=== PATIENT | male | born 1955 | race African-American/Black ===

== ENCOUNTER 2018-07-14 12:53 | Emergency (ER) | payer MEDICAID ==
[~2018-07-14] VITALS: Ht 177.8 cm; Wt 90.0 kg
[2018-07-14] MEDS ORDERED: SODIUM CHLORIDE 0.9% 1,000 ML IV ONE (13:20)
[2018-07-14 14:09] LABS: BASOPHILS % 0.1 % (0.0-2.0); EOSINOPHILS % 0.9 % (0.0-5.0); HEMATOCRIT. 39.2 % (42.0-52.0); HEMOGLOBIN. 13.2 g/dL (14.0-18.0); LYMPHOCYTES % 16.5 % (20.0-50.0); MEAN CORPUSCULAR HEMOGLOBIN 35.7 pg (28.0-32.0); MEAN CORPUSCULAR VOLUME 106.2 fL (80.0-94.0); MEAN PLATELET VOLUME 8.8 fl (7.4-10.4); MONOCYTES % 6.8 % (2.0-8.0); NEUTROPHILS % 75.7 % (40.0-76.0); PLATELET 186 x1000/uL (130-400); RED BLOOD CELL COUNT 3.69 mill/uL (4.7-6.1); RED CELL DISTRIBUTION WIDTH 13.9 % (11.6-14.6)
[2018-07-14 14:15] LABS: CHLORIDE 103 mEq/L (98-107)
[2018-07-14 14:19] LABS: ETHANOL BLOOD 235 mg/dL
[2018-07-14 16:37] LABS: CLARITY URINE CLEAR (CLEAR); COLOR URINE YELLOW (YELLOW); KETONES URINE NEGATIVE (NEGATIVE); LEUKOCYTE ESTERASE URINE NEGATIVE (NEGATIVE); NITRITE URINE NEGATIVE (NEGATIVE); OCCULT BLOOD URINE NEGATIVE (NEGATIVE); PH URINE 5.5 (4.5-8.0); PROTEIN URINE NEGATIVE (NEGATIVE); SPECIFIC GRAVITY URINE 1.005 (1.005-1.030)
[2018-07-14 16:49] LABS: *AMPHETAMINES SCREEN URINE NEGATIVE (NEGATIVE); *BARBITURATES SCREEN URINE NEGATIVE (NEGATIVE); *BENZODIAZEPINES SCREEN URINE NEGATIVE (NEGATIVE); *COCAINE SCREEN URINE NEGATIVE (NEGATIVE)
[2018-07-14 16:50] LABS: CANNABINOID URINE SCREEN NEGATIVE (NEGATIVE); METHADONE URINE SCREEN NEGATIVE (NEGATIVE); OPIATES URINE SCREEN NEGATIVE (NEGATIVE); PHENCYCLIDINE URINE SCREEN PRESUMTIVE POSITIVE (NEGATIVE)
[2018-07-14] MEDS ORDERED: ACETAMINOPHEN 325MG TABLET PO ONE (17:45)
[2018-07-14 19:24] VITALS: BP 125/71
[2018-07-24] MEDS ORDERED: CLON-457 PO (19:47)
[2018-07-24] MEDS ORDERED: RIVA1TAB PO (19:48)
== END 2018-07-14 19:27 | disposition home or self-care (01) ==
LOC: EDBD 12:53 → ER 12:53
DX: F10.129 Alcohol abuse with intoxication, unspecified (principal); Y90.7 Blood alcohol level of 200-239 mg/100 ml; G92 Toxic encephalopathy; S62.031A Displaced fracture of proximal third of navicular [scaphoid] bone of right wrist, initial encounter for closed fracture; F16.10 Hallucinogen abuse, uncomplicated; X58.XXXA Exposure to other specified factors, initial encounter; Y93.89 Activity, other specified; Y92.481 Parking lot as the place of occurrence of the external cause; R03.0 Elevated blood-pressure reading, without diagnosis of hypertension
CPT/HCPCS: 29125; 36415; 70450; 70486; 72125; 73110; 73130; 80053; 80305; 80307; 80329; 81003; 85025; 93005; 99285; G0482; J7030

== ENCOUNTER 2018-07-19 18:53 | Emergency (ER) | payer MEDICAID ==
[~2018-07-19] VITALS: Ht 182.9 cm; Wt 87.0 kg
[2018-07-19] MEDS ORDERED: SODIUM CHLORIDE 0.9% 1,000 ML IV ONE (20:19)
[2018-07-19] MEDS ORDERED: KETOROLAC 30MG/ML VIAL IV ONE (20:30)
[2018-07-19 21:34] LABS: *AMPHETAMINES SCREEN URINE NEGATIVE (NEGATIVE); *BARBITURATES SCREEN URINE NEGATIVE (NEGATIVE); *BENZODIAZEPINES SCREEN URINE NEGATIVE (NEGATIVE); *COCAINE SCREEN URINE NEGATIVE (NEGATIVE); CANNABINOID URINE SCREEN NEGATIVE (NEGATIVE); METHADONE URINE SCREEN NEGATIVE (NEGATIVE); OPIATES URINE SCREEN NEGATIVE (NEGATIVE); PHENCYCLIDINE URINE SCREEN PRESUMTIVE POSITIVE (NEGATIVE)
[2018-07-19 21:54] LABS: BASOPHILS % 0.7 % (0.0-2.0); EOSINOPHILS % 2.3 % (0.0-5.0); HEMATOCRIT. 39.2 % (42.0-52.0); HEMOGLOBIN. 13.3 g/dL (14.0-18.0); LYMPHOCYTES % 25.5 % (20.0-50.0); MEAN CORPUSCULAR HEMOGLOBIN 36.8 pg (28.0-32.0); MEAN CORPUSCULAR VOLUME 108.2 fL (80.0-94.0); MONOCYTES % 8.4 % (2.0-8.0); NEUTROPHILS % 63.1 % (40.0-76.0); PLATELET 180 x1000/uL (130-400); RED BLOOD CELL COUNT 3.62 mill/uL (4.7-6.1); RED CELL DISTRIBUTION WIDTH 13.9 % (11.6-14.6)
[2018-07-19 21:55] LABS: CHLORIDE 103 mEq/L (98-107); ETHANOL BLOOD 14 mg/dL
[2018-07-19 22:58] VITALS: BP 155/77
[2018-07-24] MEDS ORDERED: CLON-457 PO (19:47)
[2018-07-24] MEDS ORDERED: RIVA1TAB PO (19:48)
== END 2018-07-19 22:59 | disposition home or self-care (01) ==
LOC: ER 18:53
DX: I11.0 Hypertensive heart disease with heart failure (principal); I50.9 Heart failure, unspecified; F17.200 Nicotine dependence, unspecified, uncomplicated; F16.10 Hallucinogen abuse, uncomplicated
CPT/HCPCS: 36415; 71045; 80048; 80305; 83880; 84484; 85025; 93005; 96374; 99285; G0482; J1885; J7030; Z7610

== ENCOUNTER 2018-09-04 16:48 | Emergency (ER) | payer MEDICAID ==
[~2018-09-04] VITALS: Ht 177.8 cm; Wt 90.0 kg
[~2018-09-04 16:48] MED LIST: CLON-457 PO; RIVA1TAB PO
[2018-09-04] MEDS ORDERED: IBUPROFEN 600MG TABLET PO STA (18:57)
[2018-09-04 21:02] LABS: BASOPHILS % 0.4 % (0.0-2.0); EOSINOPHILS % 1.7 % (0.0-5.0); HEMATOCRIT. 42.3 % (42.0-52.0); HEMOGLOBIN. 14.2 g/dL (14.0-18.0); LYMPHOCYTES % 33.7 % (20.0-50.0); MEAN CORPUSCULAR HEMOGLOBIN 35.5 pg (28.0-32.0); MEAN CORPUSCULAR VOLUME 105.4 fL (80.0-94.0); MONOCYTES % 7.7 % (2.0-8.0); NEUTROPHILS % 56.5 % (40.0-76.0); PLATELET 151 x1000/uL (130-400); RED BLOOD CELL COUNT 4.01 mill/uL (4.7-6.1); RED CELL DISTRIBUTION WIDTH 13.6 % (11.6-14.6)
[2018-09-04 21:11] LABS: CHLORIDE 106 mEq/L (98-107)
[2018-09-04 21:18] LABS: ETHANOL BLOOD 72 mg/dL
[2018-09-04 21:35] LABS: *AMPHETAMINES SCREEN URINE NEGATIVE (NEGATIVE); *BENZODIAZEPINES SCREEN URINE NEGATIVE (NEGATIVE); *COCAINE SCREEN URINE NEGATIVE (NEGATIVE); CANNABINOID URINE SCREEN NEGATIVE (NEGATIVE); METHADONE URINE SCREEN NEGATIVE (NEGATIVE); OPIATES URINE SCREEN NEGATIVE (NEGATIVE); PHENCYCLIDINE URINE SCREEN PRESUMTIVE POSITIVE (NEGATIVE)
[2018-09-04 21:45] LABS: *BARBITURATES SCREEN URINE NEGATIVE (NEGATIVE)
[2018-09-04 22:24] VITALS: BP 139/80
== END 2018-09-04 22:25 | disposition home or self-care (01) ==
LOC: ER 16:48
DX: R07.89 Other chest pain (principal); E78.00 Pure hypercholesterolemia, unspecified; I10 Essential (primary) hypertension; F17.200 Nicotine dependence, unspecified, uncomplicated; F10.129 Alcohol abuse with intoxication, unspecified; Y90.3 Blood alcohol level of 60-79 mg/100 ml; Z98.890 Other specified postprocedural states
CPT/HCPCS: 36415; 71045; 80053; 80305; 83880; 84484; 85025; 93005; 99284; 99406; G0482

== ENCOUNTER 2018-09-16 17:59 | Inpatient (IN) | payer MEDICAID ==
[~2018-09-16] VITALS: Ht 175.3 cm; Wt 84.4 kg
[2018-09-16] MEDS ORDERED: FAMOTIDINE 20MG/2ML VIAL IV STA (19:14)
[2018-09-16] MEDS ORDERED: MAGNESIUM/ALUMINUM HYDROXIDE/SIMETHICONE 30ML UDC PO STA (19:14)
[2018-09-16] MEDS ORDERED: VISCOUS LIDOCAINE 2% 15 ML UDC PO STA (19:14)
[2018-09-16] MEDS ORDERED: NITROGLYCERIN OINT 1GM/INCH UDPKT TD ONE (19:15)
[2018-09-16 21:05] LABS: BASOPHILS % 0.5 % (0.0-2.0); EOSINOPHILS % 1.4 % (0.0-5.0); HEMATOCRIT. 39.4 % (42.0-52.0); HEMOGLOBIN. 13.2 g/dL (14.0-18.0); LYMPHOCYTES % 20.8 % (20.0-50.0); MEAN CORPUSCULAR HEMOGLOBIN 35.1 pg (28.0-32.0); MEAN CORPUSCULAR VOLUME 105.1 fL (80.0-94.0); MONOCYTES % 8.6 % (2.0-8.0); NEUTROPHILS % 68.7 % (40.0-76.0); PLATELET 168 x1000/uL (130-400); RED BLOOD CELL COUNT 3.75 mill/uL (4.7-6.1); RED CELL DISTRIBUTION WIDTH 14.3 % (11.6-14.6)
[2018-09-16 21:12] LABS: INR 1.1; PROTHROMBIN TIME 10.6 sec (9.1-11.1)
[2018-09-16 21:14] LABS: CHLORIDE 108 mEq/L (98-107)
[2018-09-16 21:19] LABS: ETHANOL BLOOD < 10 mg/dL
[2018-09-16 22:42] LABS: CLARITY URINE CLOUDY (CLEAR); COLOR URINE DARK YELLOW (YELLOW); KETONES URINE 1+ (NEGATIVE); LEUKOCYTE ESTERASE URINE NEGATIVE (NEGATIVE); NITRITE URINE NEGATIVE (NEGATIVE); OCCULT BLOOD URINE NEGATIVE (NEGATIVE); PROTEIN URINE 1+ (NEGATIVE); SPECIFIC GRAVITY URINE 1.029 (1.005-1.030)
[2018-09-16 22:51] LABS: *AMPHETAMINES SCREEN URINE NEGATIVE (NEGATIVE); *BARBITURATES SCREEN URINE NEGATIVE (NEGATIVE); *BENZODIAZEPINES SCREEN URINE NEGATIVE (NEGATIVE)
[2018-09-16 22:52] LABS: *COCAINE SCREEN URINE NEGATIVE (NEGATIVE); CANNABINOID URINE SCREEN NEGATIVE (NEGATIVE); METHADONE URINE SCREEN NEGATIVE (NEGATIVE); OPIATES URINE SCREEN NEGATIVE (NEGATIVE); PHENCYCLIDINE URINE SCREEN PRESUMTIVE POSITIVE (NEGATIVE)
[2018-09-17 09:30] VITALS: BP 127/65
[2018-09-17] MEDS ORDERED: ACETAMINOPHEN 325MG TABLET PO PRN (11:00)
[2018-09-17] MEDS ORDERED: ONDANSETRON HCL 4MG/2ML INJ IV PRN (11:00)
[2018-09-17 12:00] VITALS: BP 124/75
[2018-09-17 13:18] LABS: HEMATOCRIT 37.6 % (42.0-52.0); HEMOGLOBIN 12.6 g/dL (14.0-18.0)
[2018-09-17] MEDS ORDERED: FOLIC ACID 1 MG, THIAMINE HCL 100 MG, MVI, ADULT NO.1 10 ML in DEXTROSE 5% WATER 1,000 ML IV NR ×4 (14:00)
[2018-09-17] MEDS: CHLORDIAZEPOXIDE 25MG CAPSULE PO SCH ×2 (14:03→21:09)
[2018-09-17 14:08] LABS: CREATINE KINASE 117 IU/L (39-308)
[2018-09-17 14:09] LABS: CREATINE KINASE MB FRACTION 1.2 ng/mL (0.5-3.6)
[2018-09-17 16:00] VITALS: BP 108/68
[2018-09-17] MEDS: PANTOPRAZOLE SODIUM 40 MG/VIAL IV SCH (17:38)
[2018-09-17 20:15] VITALS: BP 122/62
[2018-09-18] VITALS: BP 124/64
[2018-09-18] MEDS: BUDESONIDE 0.5MG/2ML NEB HHN SCH (01:15)
[2018-09-18 04:00] VITALS: BP 125/70
[2018-09-18] MEDS: CHLORDIAZEPOXIDE 25MG CAPSULE PO SCH ×3 (05:35→21:57)
[2018-09-18 08:00] VITALS: BP 124/69
[2018-09-18 08:09] LABS: BASOPHILS % 0.7 % (0.0-2.0); EOSINOPHILS % 1.9 % (0.0-5.0); HEMATOCRIT. 37.5 % (42.0-52.0); HEMOGLOBIN. 12.7 g/dL (14.0-18.0); LYMPHOCYTES % 24.3 % (20.0-50.0); MEAN CORPUSCULAR HEMOGLOBIN 35.3 pg (28.0-32.0); MEAN CORPUSCULAR VOLUME 104.5 fL (80.0-94.0); MEAN PLATELET VOLUME 8.9 fl (7.4-10.4); MONOCYTES % 9.9 % (2.0-8.0); NEUTROPHILS % 63.2 % (40.0-76.0); PLATELET 150 x1000/uL (130-400); RED BLOOD CELL COUNT 3.58 mill/uL (4.7-6.1); RED CELL DISTRIBUTION WIDTH 13.9 % (11.6-14.6)
[2018-09-18] MEDS: PANTOPRAZOLE SODIUM 40 MG/VIAL IV SCH ×2 (08:22→17:20)
[2018-09-18 08:36] LABS: CHLORIDE 107 mEq/L (98-107)
[2018-09-18] MEDS ORDERED: CLOPIDOGREL 75MG TABLET PO SCH (09:00)
[2018-09-18] MEDS ORDERED: ASPIRIN 81MG TABLET PO SCH (09:00)
[2018-09-18 12:00] VITALS: BP 107/60
[2018-09-18 12:39] LABS: T4 FREE 1.11 ng/dL (0.76-1.46)
[2018-09-18] MEDS ORDERED: ENOXAPARIN 80MG/0.8ML SYR SUBCUT SCH (13:00)
[2018-09-18] MEDS ORDERED: IPRATROPIUM/ALBUTEROL 0.5-3(2.5)MG/3ML NEB HHN PRN (16:15)
[2018-09-18 16:31] VITALS: BP 133/83
[2018-09-18 16:33] LABS: CREATINE KINASE 64 IU/L (39-308)
[2018-09-18 16:34] LABS: CREATINE KINASE MB FRACTION < 1.0 ng/mL (0.5-3.6)
[2018-09-18 20:00] VITALS: BP 120/75
[2018-09-18] MEDS: IPRATROPIUM/ALBUTEROL 0.5-3(2.5)MG/3ML NEB HHN SCH (20:48)
[2018-09-19] VITALS: BP 128/76
[2018-09-19] MEDS: IPRATROPIUM/ALBUTEROL 0.5-3(2.5)MG/3ML NEB HHN SCH ×4 (01:10→20:00)
[2018-09-19 04:00] VITALS: BP 100/66
[2018-09-19] MEDS: CHLORDIAZEPOXIDE 25MG CAPSULE PO SCH ×3 (05:40→21:15)
[2018-09-19 08:00] VITALS: BP 110/76
[2018-09-19] MEDS: BUDESONIDE 0.5MG/2ML NEB HHN SCH ×2 (08:40→20:00)
[2018-09-19] MEDS: PANTOPRAZOLE SODIUM 40 MG/VIAL IV SCH ×2 (08:43→16:51)
[2018-09-19 10:57] LABS: BASOPHILS % 0.7 % (0.0-2.0); EOSINOPHILS % 2.2 % (0.0-5.0); HEMATOCRIT. 38.5 % (42.0-52.0); HEMOGLOBIN. 12.8 g/dL (14.0-18.0); LYMPHOCYTES % 24.1 % (20.0-50.0); MEAN CORPUSCULAR HEMOGLOBIN 34.7 pg (28.0-32.0); MEAN CORPUSCULAR VOLUME 104.2 fL (80.0-94.0); MEAN PLATELET VOLUME 9.4 fl (7.4-10.4); MONOCYTES % 10.2 % (2.0-8.0); NEUTROPHILS % 62.8 % (40.0-76.0); PLATELET 171 x1000/uL (130-400); RED CELL DISTRIBUTION WIDTH 13.9 % (11.6-14.6)
[2018-09-19 11:16] LABS: CHLORIDE 107 mEq/L (98-107)
[2018-09-19 11:25] LABS: CREATINE KINASE 50 IU/L (39-308)
[2018-09-19 11:27] LABS: CREATINE KINASE MB FRACTION < 1.0 ng/mL (0.5-3.6)
[2018-09-19 12:29] VITALS: BP 114/86
[2018-09-19] MEDS ORDERED: ENOXAPARIN 80MG/0.8ML SYR SUBCUT SCH (15:30)
[2018-09-19 16:12] VITALS: BP 155/91
[2018-09-19] MEDS: ENOXAPARIN 80MG/0.8ML SYR SUBCUT SCH (16:51)
[2018-09-19] MEDS ORDERED: WARFARIN SODIUM 7.5MG TABLET PO NR (18:00)
[2018-09-19 20:00] VITALS: BP 129/84
[2018-09-20] VITALS: BP 135/85
[2018-09-20 04:00] VITALS: BP 141/84
[2018-09-20] MEDS: CHLORDIAZEPOXIDE 25MG CAPSULE PO SCH ×3 (05:18→21:28)
[2018-09-20] MEDS: ENOXAPARIN 80MG/0.8ML SYR SUBCUT SCH ×2 (05:19→17:54)
[2018-09-20 08:00] VITALS: BP 128/75
[2018-09-20] MEDS: PANTOPRAZOLE SODIUM 40 MG/VIAL IV SCH ×2 (08:33→17:54)
[2018-09-20] MEDS: IPRATROPIUM/ALBUTEROL 0.5-3(2.5)MG/3ML NEB HHN SCH ×3 (09:10→17:35)
[2018-09-20] MEDS: BUDESONIDE 0.5MG/2ML NEB HHN SCH ×2 (09:10→09:57)
[2018-09-20 12:00] VITALS: BP 137/84
[2018-09-20] MEDS ORDERED: WARFARIN SODIUM 10MG TABLET PO SCH (18:00)
[2018-09-20 20:00] VITALS: BP 157/88
[2018-09-21] VITALS: BP 159/87
[2018-09-21 04:00] VITALS: BP 150/87
[2018-09-21] MEDS: ENOXAPARIN 80MG/0.8ML SYR SUBCUT SCH (05:16)
[2018-09-21] MEDS: CHLORDIAZEPOXIDE 25MG CAPSULE PO SCH (05:16)
[2018-09-21 08:00] VITALS: BP 157/88
[2018-09-21] MEDS: PANTOPRAZOLE SODIUM 40 MG/VIAL IV SCH (09:00)
== END 2018-09-21 12:55 | disposition left against medical advice (07) | DRG 134 ==
LOC: ER 18:33 → 8WST 21:35 → EDBEDREQTM 21:37 → EDBEDREQ 21:37 → ENRESERV 09-17 08:52
PROVIDERS: ADMIT Internal Medicine; ATTEND Internal Medicine
DX: I26.99 Other pulmonary embolism without acute cor pulmonale (principal); J96.00 Acute respiratory failure, unspecified whether with hypoxia or hypercapnia; J18.9 Pneumonia, unspecified organism; N17.9 Acute kidney failure, unspecified; K92.0 Hematemesis; E87.8 Other disorders of electrolyte and fluid balance, not elsewhere classified; D62 Acute posthemorrhagic anemia; K92.2 Gastrointestinal hemorrhage, unspecified; J44.0 Chronic obstructive pulmonary disease with (acute) lower respiratory infection; M94.0 Chondrocostal junction syndrome [Tietze]; I82.401 Acute embolism and thrombosis of unspecified deep veins of right lower extremity; R07.89 Other chest pain; Z53.21 Procedure and treatment not carried out due to patient leaving prior to being seen by health care provider; S00.83XA Contusion of other part of head, initial encounter; I25.10 Atherosclerotic heart disease of native coronary artery without angina pectoris; I10 Essential (primary) hypertension; F17.200 Nicotine dependence, unspecified, uncomplicated; F16.90 Hallucinogen use, unspecified, uncomplicated; F10.10 Alcohol abuse, uncomplicated; E78.5 Hyperlipidemia, unspecified; Z91.81 History of falling; Z91.19 Patient's noncompliance with other medical treatment and regimen; Z79.01 Long term (current) use of anticoagulants; Z86.718 Personal history of other venous thrombosis and embolism; Z91.14 Patient's other noncompliance with medication regimen
CPT/HCPCS: 36415; 71045; 78582; 80048; 80061; 80305; 82550; 82553; 83036; 83880; 84439; 84443; 84484; 85014; 85018; 85379; 93005; 93306; 93970; 96374; 99285; A9558; C1893; C9113; G0482; J1650; J3411; J3490; J7070; J7620; J7626

== ENCOUNTER 2018-09-24 16:10 | Inpatient (IN) | payer MEDICAID ==
[~2018-09-24] VITALS: Ht 185.4 cm; Wt 83.0 kg
[2018-09-24] MEDS ORDERED: NITROGLYCERIN 0.4MG TABLET SL SL PRN (17:00)
[2018-09-24] MEDS ORDERED: ASPIRIN 81MG TABLET PO ONE (17:00)
[2018-09-24 17:43] LABS: BASOPHILS % 0.4 % (0.0-2.0); CHLORIDE 104 mEq/L (98-107); EOSINOPHILS % 1.9 % (0.0-5.0); HEMATOCRIT. 40.5 % (42.0-52.0); HEMOGLOBIN. 13.3 g/dL (14.0-18.0); MEAN CORPUSCULAR HEMOGLOBIN 34.4 pg (28.0-32.0); MEAN CORPUSCULAR VOLUME 104.6 fL (80.0-94.0); MEAN PLATELET VOLUME 9.3 fl (7.4-10.4); MONOCYTES % 11.4 % (2.0-8.0); NEUTROPHILS % 60.3 % (40.0-76.0); PLATELET 219 x1000/uL (130-400); RED BLOOD CELL COUNT 3.87 mill/uL (4.7-6.1); RED CELL DISTRIBUTION WIDTH 13.8 % (11.6-14.6)
[2018-09-24 17:47] LABS: ETHANOL BLOOD < 10 mg/dL
[2018-09-24 17:54] LABS: D-DIMER 0.91 mg/L FEU (<0.50); INR 1.1; PARTIAL THROMBOPLASTIN TIME 35.2 sec (23.4-31.0); PROTHROMBIN TIME 11.4 sec (9.1-11.1)
[2018-09-24] MEDS ORDERED: HEPARIN 25,000 UNITS PREMIX 500 ML IV SCH ×2 (21:15→21:45)
[2018-09-24] MEDS ORDERED: HEPARIN 5000 UNITS/ML VIAL IV ONE (21:15)
[2018-09-24] MEDS ORDERED: ONDANSETRON HCL 4MG/2ML INJ IV PRN (21:30)
[2018-09-24] MEDS ORDERED: MAGNESIUM/ALUMINUM HYDROXIDE/SIMETHICONE 30ML UDC PO PRN (21:30)
[2018-09-24] MEDS ORDERED: ACETAMINOPHEN 325MG TABLET PO PRN (21:30)
[2018-09-24] MEDS ORDERED: IPRATROPIUM/ALBUTEROL 0.5-3(2.5)MG/3ML NEB INH PRN (21:30)
[2018-09-24] MEDS ORDERED: CLONIDINE 0.1MG TABLET PO PRN (21:30)
[2018-09-24] MEDS ORDERED: DOCUSATE SODIUM 100MG CAPSULE PO PRN (21:30)
[2018-09-24] MEDS ORDERED: HYDROCODONE/ACETAMINOPHEN 5/325MG TABLET PO PRN (21:30)
[2018-09-24] MEDS: SODIUM CHLORIDE 0.9% 1,000 ML IV SCH (22:44)
[2018-09-25 00:16] LABS: CHLORIDE 106 mEq/L (98-107)
[2018-09-25] MEDS ORDERED: DEXTROSE 50% WATER 50ML SYRINGE IV ONE (00:24)
[2018-09-25 00:26] LABS: CREATINE KINASE 80 IU/L (39-308)
[2018-09-25 00:28] LABS: CREATINE KINASE MB FRACTION 1.9 ng/mL (0.5-3.6)
[2018-09-25] MEDS ORDERED: DEXTROSE 50% WATER 50ML SYRINGE IV PRN (02:45)
[2018-09-25 03:11] VITALS: BP 111/70
[2018-09-25] MEDS ORDERED: HEPARIN BOLUS PRN aPTT <36 IV (03:15)
[2018-09-25] MEDS ORDERED: HEPARIN BOLUS PRN aPTT 37-44 IV (03:15)
[2018-09-25 04:00] VITALS: BP 95/41
[2018-09-25] MEDS: SODIUM CHLORIDE 0.9% 1,000 ML IV SCH (05:06)
[2018-09-25 05:55] LABS: BASOPHILS % 0.6 % (0.0-2.0); EOSINOPHILS % 2.1 % (0.0-5.0); HEMATOCRIT. 37.1 % (42.0-52.0); HEMOGLOBIN. 12.3 g/dL (14.0-18.0); LYMPHOCYTES % 25.2 % (20.0-50.0); MEAN CORPUSCULAR HEMOGLOBIN 34.9 pg (28.0-32.0); MEAN PLATELET VOLUME 9.7 fl (7.4-10.4); MONOCYTES % 11.5 % (2.0-8.0); NEUTROPHILS % 60.6 % (40.0-76.0); PLATELET 183 x1000/uL (130-400); RED BLOOD CELL COUNT 3.53 mill/uL (4.7-6.1); RED CELL DISTRIBUTION WIDTH 13.8 % (11.6-14.6)
[2018-09-25 06:51] LABS: LDL CHOLESTEROL 77 mg/dL (5-100)
[2018-09-25 06:52] LABS: CREATINE KINASE 67 IU/L (39-308)
[2018-09-25 06:53] LABS: HDL CHOLESTEROL 56 mg/dL (40-59)
[2018-09-25 06:54] LABS: CREATINE KINASE MB FRACTION 1.2 ng/mL (0.5-3.6)
[2018-09-25] MEDS: BLOOD SUGAR DIAGNOSTIC STRIP TEST SCH ×4 (07:20→21:00)
[2018-09-25] MEDS: INSULIN LISPRO 100 UNITS/ML SUBCUT SCH ×4 (07:50→21:00)
[2018-09-25 08:00] VITALS: BP 119/62
[2018-09-25] MEDS: ASPIRIN 81MG EC TABLET PO SCH (09:38)
[2018-09-25 12:00] VITALS: BP 129/66
[2018-09-25 16:00] VITALS: BP 112/56
[2018-09-25 20:00] VITALS: BP 149/78
[2018-09-25] MEDS: HEPARIN 25,000 UNITS PREMIX 500 ML IV SCH (21:11)
[2018-09-26] VITALS: BP 120/64
[2018-09-26] MEDS: SODIUM CHLORIDE 0.9% 1,000 ML IV SCH ×2 (00:07→08:14)
[2018-09-26 04:00] VITALS: BP 131/70
[2018-09-26] MEDS: HEPARIN 25,000 UNITS PREMIX 500 ML IV SCH (04:03)
[2018-09-26] MEDS: INSULIN LISPRO 100 UNITS/ML SUBCUT SCH ×3 (06:17→17:42)
[2018-09-26] MEDS: BLOOD SUGAR DIAGNOSTIC STRIP TEST SCH ×3 (06:17→17:20)
[2018-09-26 08:00] VITALS: BP 126/67
[2018-09-26] MEDS: ASPIRIN 81MG EC TABLET PO SCH (08:14)
[2018-09-26 12:00] VITALS: BP 118/69
[2018-09-26] MEDS ORDERED: ASPI-1158 PO (12:43)
[2018-09-26 15:40] VITALS: BP 118/69
== END 2018-09-26 18:20 | disposition home or self-care (01) | DRG 134 ==
LOC: ER 16:10 → EDBEDREQ 16:57 → 6WST 21:13 → EDBEDREQ 21:21 → EDBEDREQSVC 21:21 → EDBEDREQTM 21:21 → ENRESERV 22:06
PROVIDERS: ADMIT Internal Medicine; ATTEND Internal Medicine
DX: I26.99 Other pulmonary embolism without acute cor pulmonale (principal); I82.503 Chronic embolism and thrombosis of unspecified deep veins of lower extremity, bilateral; D53.9 Nutritional anemia, unspecified; I10 Essential (primary) hypertension; E16.2 Hypoglycemia, unspecified; J44.9 Chronic obstructive pulmonary disease, unspecified; E78.5 Hyperlipidemia, unspecified; F19.10 Other psychoactive substance abuse, uncomplicated; F17.210 Nicotine dependence, cigarettes, uncomplicated; E78.00 Pure hypercholesterolemia, unspecified; Z79.01 Long term (current) use of anticoagulants; Z79.899 Other long term (current) drug therapy
CPT/HCPCS: 36415; 71045; 78582; 80048; 80061; 82550; 82553; 82962; 83735; 83880; 84443; 84484; 85379; 93005; 93970; 96365; 96375; 99291; A9558; G0482; J1644

== ENCOUNTER 2018-09-27 18:34 | Emergency (ER) | payer MEDICAID ==
[~2018-09-27] VITALS: Ht 175.3 cm; Wt 85.0 kg
[~2018-09-27 18:34] MED LIST changes: +ASPI-1158 PO; -CLON-457 PO; -RIVA1TAB PO
[2018-09-27 20:34] LABS: BASOPHILS % 0.6 % (0.0-2.0); EOSINOPHILS % 1.8 % (0.0-5.0); HEMATOCRIT. 38.7 % (42.0-52.0); HEMOGLOBIN. 12.8 g/dL (14.0-18.0); LYMPHOCYTES % 25.4 % (20.0-50.0); MEAN CORPUSCULAR HEMOGLOBIN 34.3 pg (28.0-32.0); MEAN CORPUSCULAR VOLUME 103.4 fL (80.0-94.0); MEAN PLATELET VOLUME 9.4 fl (7.4-10.4); MONOCYTES % 8.4 % (2.0-8.0); NEUTROPHILS % 63.8 % (40.0-76.0); PLATELET 217 x1000/uL (130-400); RED BLOOD CELL COUNT 3.74 mill/uL (4.7-6.1); RED CELL DISTRIBUTION WIDTH 13.9 % (11.6-14.6)
[2018-09-27 20:38] LABS: CHLORIDE 105 mEq/L (98-107); PROTHROMBIN TIME 10.5 sec (9.1-11.1)
[2018-09-27 20:45] LABS: ETHANOL BLOOD < 10 mg/dL
[2018-09-27 22:00] VITALS: BP 185/85
[2018-09-28] MEDS ORDERED: CLON-457 MT (20:08)
== END 2018-09-27 22:15 | disposition left against medical advice (07) ==
LOC: ER 18:34 → CANBEDREQ 22:45
DX: N28.9 Disorder of kidney and ureter, unspecified (principal); R94.31 Abnormal electrocardiogram [ECG] [EKG]; I10 Essential (primary) hypertension; F17.200 Nicotine dependence, unspecified, uncomplicated; E78.00 Pure hypercholesterolemia, unspecified; Z88.5 Allergy status to narcotic agent; Z79.82 Long term (current) use of aspirin; Z79.899 Other long term (current) drug therapy
CPT/HCPCS: 36415; 71045; 80053; 83880; 84484; 85025; 85610; 93005; 99284; G0482

== ENCOUNTER 2018-09-28 19:25 | Emergency (ER) | payer MEDICAID ==
[~2018-09-28] VITALS: Ht 182.9 cm; Wt 88.0 kg
[2018-09-28] MEDS ORDERED: IBUPROFEN 600MG TABLET PO STA (19:53)
[2018-09-28] MEDS ORDERED: CLON-457 MT (20:08)
[2018-09-28 21:09] LABS: BASOPHILS % 0.4 % (0.0-2.0); EOSINOPHILS % 1.8 % (0.0-5.0); HEMATOCRIT. 39.7 % (42.0-52.0); HEMOGLOBIN. 13.3 g/dL (14.0-18.0); MEAN CORPUSCULAR HEMOGLOBIN 34.6 pg (28.0-32.0); MEAN CORPUSCULAR VOLUME 103.3 fL (80.0-94.0); MEAN PLATELET VOLUME 9.3 fl (7.4-10.4); MONOCYTES % 6.9 % (2.0-8.0); NEUTROPHILS % 60.9 % (40.0-76.0); PLATELET 242 x1000/uL (130-400); RED BLOOD CELL COUNT 3.84 mill/uL (4.7-6.1); RED CELL DISTRIBUTION WIDTH 13.9 % (11.6-14.6)
[2018-09-28 21:12] LABS: CHLORIDE 104 mEq/L (98-107)
[2018-09-28 21:16] LABS: ETHANOL BLOOD < 10 mg/dL
[2018-09-29] VITALS: BP 149/83
== END 2018-09-29 00:05 | disposition home or self-care (01) ==
LOC: ER 19:25
DX: R07.89 Other chest pain (principal); E78.00 Pure hypercholesterolemia, unspecified; I10 Essential (primary) hypertension; Z86.718 Personal history of other venous thrombosis and embolism; Z79.899 Other long term (current) drug therapy
CPT/HCPCS: 36415; 71045; 80053; 83690; 84484; 85025; 93005; 99284; G0482

== ENCOUNTER 2018-10-15 06:24 | Inpatient (IN) | payer MEDICAID ==
[~2018-10-15] VITALS: Ht 185.4 cm; Wt 80.7 kg
[~2018-10-15 06:24] MED LIST changes: +CLON-457 MT
[2018-10-15 10:09] LABS: BASOPHILS % 0.7 % (0.0-2.0); EOSINOPHILS % 0.4 % (0.0-5.0); HEMATOCRIT. 44.1 % (42.0-52.0); HEMOGLOBIN. 14.6 g/dL (14.0-18.0); LYMPHOCYTES % 19.7 % (20.0-50.0); MEAN CORPUSCULAR HEMOGLOBIN 34.3 pg (28.0-32.0); MEAN CORPUSCULAR VOLUME 103.7 fL (80.0-94.0); MEAN PLATELET VOLUME 9.5 fl (7.4-10.4); MONOCYTES % 8.5 % (2.0-8.0); NEUTROPHILS % 70.7 % (40.0-76.0); PLATELET 181 x1000/uL (130-400); RED BLOOD CELL COUNT 4.25 mill/uL (4.7-6.1); RED CELL DISTRIBUTION WIDTH 14.5 % (11.6-14.6)
[2018-10-15 10:11] LABS: CHLORIDE 109 mEq/L (98-107)
[2018-10-15 16:14] VITALS: BP 125/62
[2018-10-15] MEDS ORDERED: IPRATROPIUM/ALBUTEROL 0.5-3(2.5)MG/3ML NEB INH PRN (20:15)
[2018-10-15] MEDS ORDERED: ONDANSETRON HCL 4MG/2ML INJ IV PRN (20:15)
[2018-10-15] MEDS ORDERED: CLONIDINE 0.1MG TABLET PO PRN (20:15)
[2018-10-15] MEDS ORDERED: ACETAMINOPHEN 325MG TABLET PO PRN (20:15)
[2018-10-15 20:45] VITALS: BP 103/73
[2018-10-15] MEDS: ENOXAPARIN 40MG/0.4ML SYR SUBCUT SCH (21:17)
[2018-10-16 00:37] VITALS: BP 102/80
[2018-10-16 04:00] VITALS: BP 118/65
[2018-10-16] MEDS ORDERED: MECLIZINE 25MG TABLET PO PRN (08:15)
[2018-10-16 12:00] VITALS: BP 134/76
[2018-10-16 12:29] LABS: BASOPHILS % 0.5 % (0.0-2.0); EOSINOPHILS % 1.5 % (0.0-5.0); HEMATOCRIT. 35.2 % (42.0-52.0); HEMOGLOBIN. 11.9 g/dL (14.0-18.0); MEAN CORPUSCULAR HEMOGLOBIN 34.6 pg (28.0-32.0); MEAN CORPUSCULAR VOLUME 102.4 fL (80.0-94.0); MEAN PLATELET VOLUME 9.3 fl (7.4-10.4); MONOCYTES % 9.2 % (2.0-8.0); NEUTROPHILS % 60.8 % (40.0-76.0); PLATELET 163 x1000/uL (130-400); RED BLOOD CELL COUNT 3.44 mill/uL (4.7-6.1)
[2018-10-16 12:41] LABS: CHLORIDE 110 mEq/L (98-107)
[2018-10-16 12:47] LABS: ETHANOL BLOOD < 10 mg/dL
[2018-10-16 12:51] LABS: CREATINE KINASE MB FRACTION < 1.0 ng/mL (0.5-3.6)
[2018-10-16 12:58] LABS: CREATINE KINASE 53 IU/L (39-308)
[2018-10-16 16:00] VITALS: BP 148/75
[2018-10-16 20:44] VITALS: BP 134/57
[2018-10-16 20:46] VITALS: BP_SYST 130; BP_SYST 142; BP_DIAS 68; BP_DIAS 79
[2018-10-16] MEDS: ENOXAPARIN 40MG/0.4ML SYR SUBCUT SCH (21:00)
[2018-10-17 00:26] VITALS: BP 92/67
[2018-10-17 04:00] VITALS: BP 133/74
[2018-10-17 08:00] VITALS: BP 125/71
[2018-10-17 12:00] VITALS: BP 144/99
[2018-10-17 16:00] VITALS: BP_SYST 125; BP_SYST 128; BP_DIAS 68; BP_DIAS 71
[2018-10-17] MEDS ORDERED: RIVAROXABAN 20 MG TABLET PO SCH (17:00)
[2018-10-17 18:23] LABS: *AMPHETAMINES SCREEN URINE NEGATIVE (NEGATIVE); *BARBITURATES SCREEN URINE NEGATIVE (NEGATIVE); *BENZODIAZEPINES SCREEN URINE NEGATIVE (NEGATIVE); *COCAINE SCREEN URINE NEGATIVE (NEGATIVE); CANNABINOID URINE SCREEN NEGATIVE (NEGATIVE); METHADONE URINE SCREEN NEGATIVE (NEGATIVE); OPIATES URINE SCREEN NEGATIVE (NEGATIVE); PHENCYCLIDINE URINE SCREEN PRESUMTIVE POSITIVE (NEGATIVE)
[2018-10-18 08:09] VITALS: BP 125/71
== END 2018-10-18 08:42 | disposition home or self-care (01) | DRG 204 ==
LOC: ER 07:38 → 6WST 11:10 → EDBEDREQTM 11:12 → EDBEDREQ 11:12 → ENRESERV 15:38
PROVIDERS: ADMIT Internal Medicine; ATTEND Internal Medicine
DX: I95.1 Orthostatic hypotension (principal); I11.0 Hypertensive heart disease with heart failure; I50.9 Heart failure, unspecified; R07.89 Other chest pain; E78.00 Pure hypercholesterolemia, unspecified; E78.5 Hyperlipidemia, unspecified; J44.9 Chronic obstructive pulmonary disease, unspecified; W01.0XXA Fall on same level from slipping, tripping and stumbling without subsequent striking against object, initial encounter; F16.90 Hallucinogen use, unspecified, uncomplicated; F17.200 Nicotine dependence, unspecified, uncomplicated; Z91.19 Patient's noncompliance with other medical treatment and regimen; Z79.01 Long term (current) use of anticoagulants; Z79.899 Other long term (current) drug therapy; Z79.82 Long term (current) use of aspirin; Z86.718 Personal history of other venous thrombosis and embolism; Z86.711 Personal history of pulmonary embolism; Z82.49 Family history of ischemic heart disease and other diseases of the circulatory system; Z83.3 Family history of diabetes mellitus; Y93.89 Activity, other specified; Y92.89 Other specified places as the place of occurrence of the external cause; Y99.8 Other external cause status
CPT/HCPCS: 36415; 70544; 70553; 71045; 80048; 80305; 82550; 82553; 83880; 84484; 93005; 93306; 93880; 97162; 97166; 99285; G0482; J1650; J8597

== ENCOUNTER 2018-11-09 17:21 | Emergency (ER) | payer MEDICAID ==
[~2018-11-09] VITALS: Ht 182.9 cm; Wt 91.0 kg
[2018-11-09] MEDS ORDERED: IBUPROFEN 600MG TABLET PO ONE (21:00)
[2018-11-09 21:51] LABS: BASOPHILS % 0.4 % (0.0-2.0); EOSINOPHILS % 1.2 % (0.0-5.0); HEMATOCRIT. 41.2 % (42.0-52.0); HEMOGLOBIN. 13.4 g/dL (14.0-18.0); LYMPHOCYTES % 26.2 % (20.0-50.0); MEAN CORPUSCULAR HEMOGLOBIN 33.6 pg (28.0-32.0); MEAN CORPUSCULAR VOLUME 103.7 fL (80.0-94.0); MEAN PLATELET VOLUME 8.8 fl (7.4-10.4); MONOCYTES % 5.9 % (2.0-8.0); NEUTROPHILS % 66.3 % (40.0-76.0); PLATELET 267 x1000/uL (130-400); RED BLOOD CELL COUNT 3.98 mill/uL (4.7-6.1); RED CELL DISTRIBUTION WIDTH 15.2 % (11.6-14.6)
[2018-11-09 21:56] LABS: CHLORIDE 106 mEq/L (98-107)
[2018-11-09 22:01] LABS: ETHANOL BLOOD < 10 mg/dL
[2018-11-10 02:13] VITALS: BP 105/65
== END 2018-11-10 02:13 | disposition home or self-care (01) ==
LOC: ER 17:21
DX: R07.89 Other chest pain (principal)
CPT/HCPCS: 36415; 71045; 80053; 83690; 84484; 85025; 87186; 93005; 99284; Z7610

== ENCOUNTER 2018-11-10 19:23 | Emergency (ER) | payer MEDICAID ==
[~2018-11-10] VITALS: Ht 182.9 cm; Wt 87.0 kg
[2018-11-10] MEDS ORDERED: KETOROLAC 60MG/2ML VIAL IM ONE (20:00)
[2018-11-11 07:20] VITALS: BP 131/69
[2018-11-11] MEDS ORDERED: ACETAMINOPHEN 500MG TABLET PO ONE (08:00)
== END 2018-11-11 08:10 | disposition home or self-care (01) ==
LOC: ER 19:46
DX: G89.29 Other chronic pain (principal); M54.5 Low back pain; I10 Essential (primary) hypertension; F17.200 Nicotine dependence, unspecified, uncomplicated; Z98.890 Other specified postprocedural states; Z79.899 Other long term (current) drug therapy
CPT/HCPCS: 96372; 99283; J1885; Z7610

== ENCOUNTER 2018-11-11 22:18 | Emergency (ER) | payer MEDICAID ==
[~2018-11-11] VITALS: Ht 182.9 cm; Wt 87.0 kg
[2018-11-12] MEDS ORDERED: ACETAMINOPHEN 325MG TABLET PO STA (06:55)
[2018-11-12 08:15] VITALS: BP 159/88
== END 2018-11-12 08:43 | disposition home or self-care (01) ==
LOC: ER 22:18
DX: K40.90 Unilateral inguinal hernia, without obstruction or gangrene, not specified as recurrent (principal); R07.89 Other chest pain; I10 Essential (primary) hypertension
CPT/HCPCS: 71045; 99283

== ENCOUNTER 2018-11-27 20:17 | Emergency (ER) | payer MEDICAID ==
[~2018-11-27] VITALS: Ht 190.5 cm; Wt 87.0 kg
[2018-11-28 07:28] VITALS: BP 172/94
== END 2018-11-28 08:00 | disposition home or self-care (01) ==
LOC: ER 20:17
DX: K40.91 Unilateral inguinal hernia, without obstruction or gangrene, recurrent (principal); I10 Essential (primary) hypertension
CPT/HCPCS: 99283

== ENCOUNTER 2018-11-28 22:28 | Emergency (ER) | payer MEDICAID ==
[~2018-11-28] VITALS: Ht 182.9 cm; Wt 87.0 kg
[2018-11-29] MEDS ORDERED: ONDANSETRON 4MG ODT PO ONE (00:45)
[2018-11-29] MEDS ORDERED: MORPHINE SULFATE 10 MG/ML CPJ IM ONE (00:45)
[2018-11-29 01:54] VITALS: BP 150/83
== END 2018-11-29 01:56 | disposition home or self-care (01) ==
LOC: ER 22:28
DX: K40.90 Unilateral inguinal hernia, without obstruction or gangrene, not specified as recurrent (principal); I10 Essential (primary) hypertension
CPT/HCPCS: 96372; 99283; J2270; Q0162

== ENCOUNTER 2018-11-30 19:52 | Emergency (ER) | payer MEDICAID ==
[~2018-11-30] VITALS: Ht 182.9 cm; Wt 87.0 kg
[2018-12-01] MEDS ORDERED: IBUPROFEN 600MG TABLET PO ONE (02:00)
[2018-12-01 03:15] VITALS: BP 150/86
== END 2018-12-01 03:55 | disposition home or self-care (01) ==
LOC: ER 20:42
DX: S40.011A Contusion of right shoulder, initial encounter (principal); X50.1XXA Overexertion from prolonged static or awkward postures, initial encounter; R10.31 Right lower quadrant pain; Y93.89 Activity, other specified; Y92.89 Other specified places as the place of occurrence of the external cause; I10 Essential (primary) hypertension; F17.210 Nicotine dependence, cigarettes, uncomplicated
CPT/HCPCS: 73030; 99283; Z7610

== ENCOUNTER 2018-12-01 22:51 | Emergency (ER) | payer MEDICAID ==
[~2018-12-01] VITALS: Ht 180.3 cm; Wt 82.0 kg
[2018-12-02] MEDS ORDERED: IBUPROFEN 600MG TABLET PO STA (03:35)
[2018-12-02 04:41] LABS: CHLORIDE 105 mEq/L (98-107)
[2018-12-02 04:50] LABS: BASOPHILS % 0.7 % (0.0-2.0); EOSINOPHILS % 3.1 % (0.0-5.0); HEMATOCRIT. 36.5 % (42.0-52.0); HEMOGLOBIN. 12.1 g/dL (14.0-18.0); LYMPHOCYTES % 24.9 % (20.0-50.0); MEAN CORPUSCULAR HEMOGLOBIN 34.1 pg (28.0-32.0); MEAN CORPUSCULAR VOLUME 102.6 fL (80.0-94.0); MEAN PLATELET VOLUME 8.1 fl (7.4-10.4); NEUTROPHILS % 59.3 % (40.0-76.0); PLATELET 208 x1000/uL (130-400); RED BLOOD CELL COUNT 3.56 mill/uL (4.7-6.1); RED CELL DISTRIBUTION WIDTH 14.8 % (11.6-14.6)
[2018-12-02 09:25] VITALS: BP 114/73
== END 2018-12-02 09:45 | disposition home or self-care (01) ==
LOC: ER 12-02 00:26
DX: R07.89 Other chest pain (principal); R10.31 Right lower quadrant pain; I10 Essential (primary) hypertension; Z86.718 Personal history of other venous thrombosis and embolism; Z79.899 Other long term (current) drug therapy
CPT/HCPCS: 36415; 71045; 80053; 84484; 85025; 93005; 99284; Z7610

== ENCOUNTER 2018-12-02 22:35 | Emergency (ER) | payer MEDICAID ==
[~2018-12-02] VITALS: Ht 182.9 cm; Wt 87.0 kg
[2018-12-03] MEDS ORDERED: TRAMADOL 50MG TABLET PO ONE (04:45)
[2018-12-03 06:09] VITALS: BP 153/75
== END 2018-12-03 06:11 | disposition home or self-care (01) ==
LOC: ER 22:35
DX: K40.90 Unilateral inguinal hernia, without obstruction or gangrene, not specified as recurrent (principal); R05 Cough; F17.210 Nicotine dependence, cigarettes, uncomplicated
CPT/HCPCS: 99283

== ENCOUNTER 2018-12-03 19:35 | Emergency (ER) | payer MEDICAID ==
[~2018-12-03] VITALS: Ht 182.9 cm; Wt 90.0 kg
[2018-12-04 06:40] VITALS: BP 170/93
[2018-12-04 08:53] LABS: CLARITY URINE CLEAR (CLEAR); COLOR URINE YELLOW (YELLOW); KETONES URINE TRACE (NEGATIVE); LEUKOCYTE ESTERASE URINE NEGATIVE (NEGATIVE); NITRITE URINE NEGATIVE (NEGATIVE); OCCULT BLOOD URINE NEGATIVE (NEGATIVE); PH URINE 5.5 (4.5-8.0); PROTEIN URINE TRACE (NEGATIVE); SPECIFIC GRAVITY URINE 1.026 (1.005-1.030)
== END 2018-12-04 08:48 | disposition left against medical advice (07) ==
LOC: ER 19:35
DX: Z53.21 Procedure and treatment not carried out due to patient leaving prior to being seen by health care provider (principal); R42 Dizziness and giddiness; N50.82 Scrotal pain

== ENCOUNTER 2018-12-06 20:35 | Inpatient (IN) | payer MEDICAID ==
[~2018-12-06] VITALS: Ht 182.9 cm; Wt 78.9 kg
[2018-12-07 01:15] LABS: BASOPHILS % 1.6 % (0.0-2.0); EOSINOPHILS % 1.3 % (0.0-5.0); HEMATOCRIT. 38.5 % (42.0-52.0); HEMOGLOBIN. 12.5 g/dL (14.0-18.0); LYMPHOCYTES % 20.9 % (20.0-50.0); MEAN CORPUSCULAR HEMOGLOBIN 33.7 pg (28.0-32.0); MEAN PLATELET VOLUME 8.4 fl (7.4-10.4); MONOCYTES % 5.1 % (2.0-8.0); NEUTROPHILS % 71.1 % (40.0-76.0); PLATELET 207 x1000/uL (130-400); RED CELL DISTRIBUTION WIDTH 14.7 % (11.6-14.6)
[2018-12-07 01:18] LABS: CHLORIDE 109 mEq/L (98-107)
[2018-12-07 01:22] LABS: INR 1.1; PARTIAL THROMBOPLASTIN TIME 31.3 sec (23.4-31.0); PROTHROMBIN TIME 10.6 sec (9.1-11.1)
[2018-12-07] MEDS ORDERED: ENOXAPARIN 100MG/ML SYR SUBCUT ONE (02:30)
[2018-12-07] MEDS ORDERED: ENOXAPARIN 80MG/0.8ML SYR SUBCUT ONE (02:45)
[2018-12-07] MEDS ORDERED: IOHEXOL-350 100 ML BOTTLE ONE (07:06)
[2018-12-07 08:00] VITALS: BP 117/83
[2018-12-07] MEDS ORDERED: TRAMADOL 50MG TABLET PO PRN (08:00)
[2018-12-07 08:25] VITALS: BP 117/83
[2018-12-07] MEDS ORDERED: ONDANSETRON HCL 4MG/2ML INJ IV PRN (08:45)
[2018-12-07] MEDS ORDERED: ACETAMINOPHEN 325MG TABLET PO PRN (08:45)
[2018-12-07 08:58] VITALS: BP 117/83
[2018-12-07] MEDS ORDERED: NAPR500T7 PO (09:06)
[2018-12-07] MEDS ORDERED: ACET-2178 PO (09:06)
[2018-12-07] MEDS ORDERED: xarelto (09:08)
[2018-12-07 12:35] VITALS: BP 134/65
[2018-12-07] MEDS: AMLODIPINE 5MG TABLET PO SCH (13:14)
[2018-12-07 16:35] VITALS: BP 161/88
[2018-12-07] MEDS: FUROSEMIDE 40MG/4ML VIAL IVP SCH (16:36)
[2018-12-07] MEDS: RIVAROXABAN 20 MG TABLET PO SCH (16:37)
[2018-12-07 20:00] VITALS: BP 127/71
[2018-12-08 08:00] VITALS: BP 123/63
[2018-12-08] MEDS: AMLODIPINE 5MG TABLET PO SCH (10:13)
[2018-12-08 10:29] LABS: CLARITY URINE CLEAR (CLEAR); COLOR URINE YELLOW (YELLOW); KETONES URINE NEGATIVE (NEGATIVE); LEUKOCYTE ESTERASE URINE NEGATIVE (NEGATIVE); NITRITE URINE NEGATIVE (NEGATIVE); OCCULT BLOOD URINE NEGATIVE (NEGATIVE); PROTEIN URINE TRACE (NEGATIVE); SPECIFIC GRAVITY URINE 1.026 (1.005-1.030)
[2018-12-08] MEDS: FUROSEMIDE 40MG/4ML VIAL IVP SCH (10:35)
[2018-12-08 10:56] LABS: *AMPHETAMINES SCREEN URINE NEGATIVE (NEGATIVE); *BARBITURATES SCREEN URINE NEGATIVE (NEGATIVE)
[2018-12-08 10:57] LABS: *BENZODIAZEPINES SCREEN URINE NEGATIVE (NEGATIVE); *COCAINE SCREEN URINE NEGATIVE (NEGATIVE); CANNABINOID URINE SCREEN NEGATIVE (NEGATIVE); METHADONE URINE SCREEN NEGATIVE (NEGATIVE); OPIATES URINE SCREEN NEGATIVE (NEGATIVE); PHENCYCLIDINE URINE SCREEN PRESUMTIVE POSITIVE (NEGATIVE)
[2018-12-08 12:00] VITALS: BP 113/73
[2018-12-08 16:00] VITALS: BP 123/62
[2018-12-08] MEDS: RIVAROXABAN 20 MG TABLET PO SCH (19:28)
[2018-12-08 20:00] VITALS: BP 125/60
[2018-12-08 23:31] VITALS: BP 117/83
[2018-12-09 01:02] LABS: BASOPHILS % 0.1 % (0.0-2.0); EOSINOPHILS % 2.4 % (0.0-5.0); HEMATOCRIT. 37.1 % (42.0-52.0); HEMOGLOBIN. 12.4 g/dL (14.0-18.0); LYMPHOCYTES % 24.2 % (20.0-50.0); MEAN CORPUSCULAR HEMOGLOBIN 34.1 pg (28.0-32.0); MEAN CORPUSCULAR VOLUME 101.7 fL (80.0-94.0); MEAN PLATELET VOLUME 8.6 fl (7.4-10.4); MONOCYTES % 7.5 % (2.0-8.0); NEUTROPHILS % 65.8 % (40.0-76.0); PLATELET 204 x1000/uL (130-400); RED BLOOD CELL COUNT 3.65 mill/uL (4.7-6.1); RED CELL DISTRIBUTION WIDTH 14.5 % (11.6-14.6)
[2018-12-09 01:15] LABS: CHLORIDE 108 mEq/L (98-107)
[2018-12-09 08:00] VITALS: BP 125/72
[2018-12-09] MEDS: AMLODIPINE 5MG TABLET PO SCH (09:12)
[2018-12-09] MEDS: FUROSEMIDE 40MG/4ML VIAL IVP SCH (09:21)
[2018-12-09 12:00] VITALS: BP 131/76
[2018-12-09] MEDS: RIVAROXABAN 20 MG TABLET PO SCH (18:30)
[2018-12-09 20:39] VITALS: BP 137/64
[2018-12-10 00:12] VITALS: BP 99/81
[2018-12-10 04:41] VITALS: BP 162/86
== END 2018-12-10 08:30 | disposition left against medical advice (07) | DRG 194 ==
LOC: ER 20:35 → 6WST 12-07 04:30 → EDBEDREQ 12-07 04:32 → EDBEDREQTM 12-07 04:32 → ENRESERV 12-07 07:20
PROVIDERS: ADMIT Internal Medicine; ATTEND Internal Medicine
DX: I11.0 Hypertensive heart disease with heart failure (principal); I82.403 Acute embolism and thrombosis of unspecified deep veins of lower extremity, bilateral; E87.8 Other disorders of electrolyte and fluid balance, not elsewhere classified; Z79.01 Long term (current) use of anticoagulants; I50.43 Acute on chronic combined systolic (congestive) and diastolic (congestive) heart failure; M94.0 Chondrocostal junction syndrome [Tietze]; J44.9 Chronic obstructive pulmonary disease, unspecified; E78.5 Hyperlipidemia, unspecified; D64.9 Anemia, unspecified; F19.90 Other psychoactive substance use, unspecified, uncomplicated; F17.200 Nicotine dependence, unspecified, uncomplicated; Z82.49 Family history of ischemic heart disease and other diseases of the circulatory system; Z91.19 Patient's noncompliance with other medical treatment and regimen; Z86.711 Personal history of pulmonary embolism; Z79.82 Long term (current) use of aspirin; Z79.899 Other long term (current) drug therapy; Z71.51 Drug abuse counseling and surveillance of drug abuser
CPT/HCPCS: 36415; 71045; 71275; 80048; 80305; 83735; 83880; 84484; 93005; 93970; 96365; 96375; 99285; J1650; J1940; Q9967

== ENCOUNTER 2018-12-15 22:18 | Emergency (ER) | payer MEDICAID ==
[~2018-12-15] VITALS: Ht 182.9 cm; Wt 91.4 kg
[~2018-12-15 22:18] MED LIST changes: +ACET-2178 PO; +NAPR500T7 PO; +xarelto
[2018-12-16] MEDS ORDERED: ACETAMINOPHEN 500MG TABLET PO ONE (07:30)
[2018-12-16 07:58] VITALS: BP 145/89
== END 2018-12-16 07:59 | disposition home or self-care (01) ==
LOC: ER 22:18
DX: K40.90 Unilateral inguinal hernia, without obstruction or gangrene, not specified as recurrent (principal); M25.511 Pain in right shoulder; M25.571 Pain in right ankle and joints of right foot; I10 Essential (primary) hypertension; F17.200 Nicotine dependence, unspecified, uncomplicated; Z98.890 Other specified postprocedural states; Z79.899 Other long term (current) drug therapy
CPT/HCPCS: 99283

== ENCOUNTER 2018-12-18 23:17 | Inpatient (IN) | payer MEDICAID ==
[~2018-12-18] VITALS: Ht 182.9 cm; Wt 88.0 kg
[2018-12-19 17:25] LABS: CLARITY URINE CLEAR (CLEAR); COLOR URINE YELLOW (YELLOW); KETONES URINE TRACE (NEGATIVE); LEUKOCYTE ESTERASE URINE NEGATIVE (NEGATIVE); NITRITE URINE NEGATIVE (NEGATIVE); OCCULT BLOOD URINE NEGATIVE (NEGATIVE); PH URINE 5.5 (4.5-8.0); PROTEIN URINE TRACE (NEGATIVE); SPECIFIC GRAVITY URINE 1.033 (1.005-1.030)
[2018-12-19 17:33] LABS: BASOPHILS % 0.5 % (0.0-2.0); EOSINOPHILS % 3.2 % (0.0-5.0); HEMATOCRIT. 35.9 % (42.0-52.0); HEMOGLOBIN. 11.9 g/dL (14.0-18.0); LYMPHOCYTES % 24.5 % (20.0-50.0); MEAN CORPUSCULAR VOLUME 102.1 fL (80.0-94.0); MEAN PLATELET VOLUME 8.4 fl (7.4-10.4); MONOCYTES % 7.7 % (2.0-8.0); NEUTROPHILS % 64.1 % (40.0-76.0); PLATELET 219 x1000/uL (130-400); RED BLOOD CELL COUNT 3.51 mill/uL (4.7-6.1); RED CELL DISTRIBUTION WIDTH 14.5 % (11.6-14.6)
[2018-12-19 17:35] LABS: CHLORIDE 111 mEq/L (98-107)
[2018-12-19] MEDS ORDERED: ONDANSETRON HCL 4MG/2ML INJ IV PRN (20:45)
[2018-12-19] MEDS ORDERED: ACETAMINOPHEN 325MG TABLET PO PRN (20:45)
[2018-12-19] MEDS ORDERED: CLONIDINE 0.1MG TABLET PO PRN (20:45)
[2018-12-19] MEDS ORDERED: DIPHENHYDRAMINE 50MG/ML VIAL IV PRN (20:45)
[2018-12-19] MEDS ORDERED: DOCUSATE SODIUM 100MG CAPSULE PO PRN (20:45)
[2018-12-19] MEDS ORDERED: IPRATROPIUM/ALBUTEROL 0.5-3(2.5)MG/3ML NEB INH PRN (20:45)
[2018-12-19] MEDS ORDERED: GUAIFENESIN 200MG/10ML SUGAR FREE UDC PO PRN (20:45)
[2018-12-19] MEDS ORDERED: MAGNESIUM/ALUMINUM HYDROXIDE/SIMETHICONE 30ML UDC PO PRN (20:45)
[2018-12-19] MEDS ORDERED: HYDROCODONE/ACETAMINOPHEN 5/325MG TABLET PO PRN (20:45)
[2018-12-19 21:32] VITALS: BP 154/94
[2018-12-19 22:03] VITALS: BP 154/94
[2018-12-20] VITALS: BP 126/84
[2018-12-20 04:00] VITALS: BP 127/66
[2018-12-20 08:00] VITALS: BP 131/69
[2018-12-20] MEDS ORDERED: ENOXAPARIN 40MG/0.4ML SYR SUBCUT SCH (09:00)
[2018-12-20] MEDS: FUROSEMIDE 40MG/4ML VIAL IV SCH (09:00)
[2018-12-20 12:00] VITALS: BP 148/72
[2018-12-20] MEDS: RIVAROXABAN 20 MG TABLET PO SCH (18:14)
[2018-12-20] MEDS: AMLODIPINE 5MG TABLET PO SCH ×2 (18:17→21:00)
[2018-12-20 20:43] VITALS: BP 132/78
[2018-12-20 22:41] LABS: *AMPHETAMINES SCREEN URINE NEGATIVE (NEGATIVE); *BARBITURATES SCREEN URINE NEGATIVE (NEGATIVE); *BENZODIAZEPINES SCREEN URINE NEGATIVE (NEGATIVE); *COCAINE SCREEN URINE NEGATIVE (NEGATIVE)
[2018-12-20 22:42] LABS: CANNABINOID URINE SCREEN NEGATIVE (NEGATIVE); METHADONE URINE SCREEN NEGATIVE (NEGATIVE); OPIATES URINE SCREEN NEGATIVE (NEGATIVE); PHENCYCLIDINE URINE SCREEN PRESUMTIVE POSITIVE (NEGATIVE)
[2018-12-21] VITALS (7 sets, daily range): BP systolic 108–169; BP diastolic 53–94
[2018-12-21] MEDS: FUROSEMIDE 40MG/4ML VIAL IV SCH (08:53)
[2018-12-21] MEDS: AMLODIPINE 5MG TABLET PO SCH ×2 (08:53→21:45)
[2018-12-21] MEDS ORDERED: LISINOPRIL 20MG TABLET PO NR (11:15)
[2018-12-21] MEDS ORDERED: AMLO5TAB88 PO (15:27)
[2018-12-21] MEDS ORDERED: FURO40TA5 PO (15:28)
[2018-12-21] MEDS: RIVAROXABAN 20 MG TABLET PO SCH (17:51)
[2018-12-22 04:00] VITALS: BP 142/87
[2018-12-22 08:00] VITALS: BP 126/66
[2018-12-22] MEDS ORDERED: LISINOPRIL 20MG TABLET PO SCH (09:00)
[2018-12-22] MEDS: FUROSEMIDE 40MG/4ML VIAL IV SCH (09:35)
[2018-12-22] MEDS: AMLODIPINE 5MG TABLET PO SCH (09:35)
[2018-12-22 12:00] VITALS: BP 133/73
[2018-12-22 14:07] VITALS: BP 133/73
== END 2018-12-22 14:27 | disposition home or self-care (01) | DRG 194 ==
LOC: ER 23:17 → 6WST 12-19 17:53 → EDBEDREQ 12-19 17:56 → ENRESERV 12-19 20:04
PROVIDERS: ADMIT Internal Medicine; ATTEND Internal Medicine
DX: I11.0 Hypertensive heart disease with heart failure (principal); D68.59 Other primary thrombophilia; I27.20 Pulmonary hypertension, unspecified; I07.1 Rheumatic tricuspid insufficiency; I82.503 Chronic embolism and thrombosis of unspecified deep veins of lower extremity, bilateral; R07.89 Other chest pain; I50.30 Unspecified diastolic (congestive) heart failure; R60.0 Localized edema; J44.9 Chronic obstructive pulmonary disease, unspecified; D53.9 Nutritional anemia, unspecified; F10.10 Alcohol abuse, uncomplicated; D50.9 Iron deficiency anemia, unspecified; F16.90 Hallucinogen use, unspecified, uncomplicated; F17.210 Nicotine dependence, cigarettes, uncomplicated; Z79.01 Long term (current) use of anticoagulants; Z91.81 History of falling; Z91.14 Patient's other noncompliance with medication regimen; Z79.82 Long term (current) use of aspirin; Z79.899 Other long term (current) drug therapy; Z82.49 Family history of ischemic heart disease and other diseases of the circulatory system; Z91.19 Patient's noncompliance with other medical treatment and regimen; Z87.81 Personal history of (healed) traumatic fracture
CPT/HCPCS: 36415; 71045; 80305; 83735; 83880; 84100; 84484; 93005; 93306; 93970; 97165; 99284; 99285; 99406; J1650; J1940

== ENCOUNTER 2019-01-16 21:41 | Emergency (ER) | payer MEDICAID ==
[~2019-01-16] VITALS: Ht 182.9 cm; Wt 86.2 kg
[~2019-01-16 21:41] MED LIST changes: +AMLO5TAB88 PO; +FURO40TA5 PO
[2019-01-17 05:53] VITALS: BP 161/92
[2019-01-17] MEDS ORDERED: IBUPROFEN 600MG TABLET PO STA (07:23)
[2019-01-17] MEDS ORDERED: AMLODIPINE 5MG TABLET PO ONE (07:30)
== END 2019-01-17 07:40 | disposition left against medical advice (07) ==
LOC: ER 21:41
DX: R60.0 Localized edema (principal); I10 Essential (primary) hypertension; F17.210 Nicotine dependence, cigarettes, uncomplicated
CPT/HCPCS: 99281

== ENCOUNTER 2019-01-18 19:54 | Inpatient (IN) | payer MEDICAID ==
[~2019-01-18] VITALS: Ht 182.9 cm; Wt 96.2 kg
[2019-01-19 01:21] LABS: BASOPHILS % 0.7 % (0.0-2.0); EOSINOPHILS % 2.6 % (0.0-5.0); HEMATOCRIT. 38.5 % (42.0-52.0); HEMOGLOBIN. 12.8 g/dL (14.0-18.0); LYMPHOCYTES % 30.6 % (20.0-50.0); MEAN CORPUSCULAR HEMOGLOBIN 34.3 pg (28.0-32.0); MEAN CORPUSCULAR VOLUME 102.9 fL (80.0-94.0); MEAN PLATELET VOLUME 8.2 fl (7.4-10.4); MONOCYTES % 6.9 % (2.0-8.0); NEUTROPHILS % 59.2 % (40.0-76.0); PLATELET 208 x1000/uL (130-400); RED BLOOD CELL COUNT 3.74 mill/uL (4.7-6.1); RED CELL DISTRIBUTION WIDTH 14.8 % (11.6-14.6)
[2019-01-19 01:26] LABS: CHLORIDE 107 mEq/L (98-107)
[2019-01-19 01:31] LABS: ETHANOL BLOOD < 10 mg/dL
[2019-01-19 03:11] LABS: *AMPHETAMINES SCREEN URINE NEGATIVE (NEGATIVE); *BARBITURATES SCREEN URINE NEGATIVE (NEGATIVE); *BENZODIAZEPINES SCREEN URINE NEGATIVE (NEGATIVE); *COCAINE SCREEN URINE NEGATIVE (NEGATIVE)
[2019-01-19 03:12] LABS: CANNABINOID URINE SCREEN NEGATIVE (NEGATIVE); METHADONE URINE SCREEN NEGATIVE (NEGATIVE); OPIATES URINE SCREEN NEGATIVE (NEGATIVE); PHENCYCLIDINE URINE SCREEN PRESUMTIVE POSITIVE (NEGATIVE)
[2019-01-19] MEDS ORDERED: FUROSEMIDE 20MG/2ML VIAL IVP SCH (03:15)
[2019-01-19 05:23] VITALS: BP 156/84
[2019-01-19] MEDS ORDERED: CLONIDINE 0.1MG TABLET PO PRN (07:45)
[2019-01-19 08:00] VITALS: BP 168/94
[2019-01-19] MEDS: ENOXAPARIN 40MG/0.4ML SYR SUBCUT SCH (08:58)
[2019-01-19] MEDS: FUROSEMIDE 40MG/4ML VIAL IVP SCH (08:58)
[2019-01-19] MEDS ORDERED: AMLODIPINE 5MG TABLET PO NR (09:00)
[2019-01-19 12:00] VITALS: BP 140/78
[2019-01-19 19:19] LABS: BASOPHILS % 0.5 % (0.0-2.0); EOSINOPHILS % 2.3 % (0.0-5.0); HEMATOCRIT. 38.4 % (42.0-52.0); LYMPHOCYTES % 28.5 % (20.0-50.0); MEAN CORPUSCULAR HEMOGLOBIN 34.6 pg (28.0-32.0); MEAN CORPUSCULAR VOLUME 102.6 fL (80.0-94.0); MEAN PLATELET VOLUME 8.4 fl (7.4-10.4); MONOCYTES % 9.1 % (2.0-8.0); NEUTROPHILS % 59.6 % (40.0-76.0); PLATELET 226 x1000/uL (130-400); RED BLOOD CELL COUNT 3.74 mill/uL (4.7-6.1); RED CELL DISTRIBUTION WIDTH 14.8 % (11.6-14.6)
[2019-01-19 19:26] LABS: CHLORIDE 108 mEq/L (98-107)
[2019-01-19 20:00] VITALS: BP 148/78
[2019-01-20] VITALS: BP 126/66
[2019-01-20 04:00] VITALS: BP 154/81
[2019-01-20 08:00] VITALS: BP 160/86
[2019-01-20] MEDS: ENOXAPARIN 40MG/0.4ML SYR SUBCUT SCH (09:00)
[2019-01-20] MEDS ORDERED: AMLODIPINE 5MG TABLET PO SCH (09:00)
[2019-01-20] MEDS: FUROSEMIDE 40MG/4ML VIAL IVP SCH (09:35)
[2019-01-20 12:00] VITALS: BP 178/97
[2019-01-20 13:49] VITALS: BP 178/97
== END 2019-01-20 14:18 | disposition home or self-care (01) | DRG 140 ==
LOC: ER 19:54 → 5WST 01-19 01:55 → EDBEDREQTM 01-19 01:57 → EDBEDREQ 01-19 01:57 → ENRESERV 01-19 02:47
PROVIDERS: ADMIT Internal Medicine; ATTEND Internal Medicine
DX: J44.1 Chronic obstructive pulmonary disease with (acute) exacerbation (principal); I50.43 Acute on chronic combined systolic (congestive) and diastolic (congestive) heart failure; I27.20 Pulmonary hypertension, unspecified; I07.1 Rheumatic tricuspid insufficiency; Z79.01 Long term (current) use of anticoagulants; I16.0 Hypertensive urgency; I11.0 Hypertensive heart disease with heart failure; F17.200 Nicotine dependence, unspecified, uncomplicated; F16.90 Hallucinogen use, unspecified, uncomplicated; I82.503 Chronic embolism and thrombosis of unspecified deep veins of lower extremity, bilateral; I44.4 Left anterior fascicular block
CPT/HCPCS: 36415; 71045; 80048; 80305; 80320; 83880; 84484; 93005; 96374; 97162; 99285; J1650; J1940; G0480

== ENCOUNTER 2019-01-26 22:34 | Emergency (ER) | payer MEDICAID ==
[~2019-01-26] VITALS: Ht 180.3 cm; Wt 100.3 kg
[~2019-01-26 22:34] MED LIST changes: -ACET-2178 PO; -NAPR500T7 PO; -xarelto
[2019-01-27] MEDS ORDERED: ASPIRIN 81MG TABLET PO ONE (02:00)
[2019-01-27 02:49] LABS: BASOPHILS % 0.7 % (0.0-2.0); EOSINOPHILS % 2.5 % (0.0-5.0); HEMATOCRIT. 42.1 % (42.0-52.0); HEMOGLOBIN. 13.9 g/dL (14.0-18.0); LYMPHOCYTES % 29.7 % (20.0-50.0); MEAN CORPUSCULAR HEMOGLOBIN 34.3 pg (28.0-32.0); MEAN CORPUSCULAR VOLUME 103.9 fL (80.0-94.0); MEAN PLATELET VOLUME 8.4 fl (7.4-10.4); MONOCYTES % 9.3 % (2.0-8.0); NEUTROPHILS % 57.8 % (40.0-76.0); PLATELET 205 x1000/uL (130-400); RED BLOOD CELL COUNT 4.05 mill/uL (4.7-6.1)
[2019-01-27 02:54] LABS: CHLORIDE 109 mEq/L (98-107)
[2019-01-27 05:22] VITALS: BP 163/85
== END 2019-01-27 05:45 | disposition left against medical advice (07) ==
LOC: ER 22:34
DX: M25.572 Pain in left ankle and joints of left foot (principal); M25.571 Pain in right ankle and joints of right foot; R07.9 Chest pain, unspecified
CPT/HCPCS: 36415; 71045; 83880; 84484; 93005; 99284

== ENCOUNTER 2019-01-27 20:50 | Emergency (ER) | payer MEDICAID ==
[~2019-01-27] VITALS: Ht 182.9 cm; Wt 101.0 kg
[2019-01-27 21:08] VITALS: BP 208/182
== END 2019-01-28 02:00 | disposition left against medical advice (07) ==
LOC: ER 20:50
DX: R07.9 Chest pain, unspecified (principal); Z53.21 Procedure and treatment not carried out due to patient leaving prior to being seen by health care provider

== ENCOUNTER 2019-01-29 23:04 | Emergency (ER) | payer MEDICAID ==
[~2019-01-29] VITALS: Ht 182.9 cm; Wt 101.0 kg
[2019-01-30 03:02] VITALS: BP 167/104
== END 2019-01-30 03:02 | disposition home or self-care (01) ==
LOC: ER 23:04
DX: G89.29 Other chronic pain (principal); M54.9 Dorsalgia, unspecified; I89.0 Lymphedema, not elsewhere classified; I11.0 Hypertensive heart disease with heart failure; I50.9 Heart failure, unspecified; R60.0 Localized edema; E11.9 Type 2 diabetes mellitus without complications; M79.605 Pain in left leg; M79.604 Pain in right leg; R06.02 Shortness of breath; Z79.82 Long term (current) use of aspirin; Z79.899 Other long term (current) drug therapy; Z86.718 Personal history of other venous thrombosis and embolism
CPT/HCPCS: 99283

== ENCOUNTER 2019-02-05 21:09 | Emergency (ER) | payer MEDICAID ==
[~2019-02-05] VITALS: Ht 182.9 cm; Wt 101.0 kg
[2019-02-05 21:31] VITALS: BP 190/105
== END 2019-02-06 00:46 | disposition left against medical advice (07) ==
LOC: ER 21:09
DX: R07.89 Other chest pain (principal); Z53.21 Procedure and treatment not carried out due to patient leaving prior to being seen by health care provider

== ENCOUNTER 2019-02-07 20:41 | Emergency (ER) | payer MEDICAID ==
[~2019-02-07] VITALS: Ht 182.9 cm; Wt 101.0 kg
[2019-02-07] MEDS ORDERED: IBUPROFEN 600MG TABLET PO ONE (23:15)
[2019-02-07] MEDS ORDERED: AMLODIPINE 5MG TABLET PO ONE (23:30)
[2019-02-07 23:42] VITALS: BP 174/98
== END 2019-02-07 23:45 | disposition home or self-care (01) ==
LOC: ER 20:41
DX: S43.491A Other sprain of right shoulder joint, initial encounter (principal); I10 Essential (primary) hypertension; F17.200 Nicotine dependence, unspecified, uncomplicated; Z98.890 Other specified postprocedural states; Z79.82 Long term (current) use of aspirin; X58.XXXA Exposure to other specified factors, initial encounter; Y93.89 Activity, other specified; Y92.89 Other specified places as the place of occurrence of the external cause; Y99.8 Other external cause status
CPT/HCPCS: 99283; Z7610

== ENCOUNTER 2019-02-09 00:08 | Emergency (ER) | payer MEDICAID ==
[~2019-02-09] VITALS: Ht 182.9 cm; Wt 100.0 kg
[2019-02-09 06:21] LABS: BASOPHILS % 0.8 % (0.0-2.0); EOSINOPHILS % 4.1 % (0.0-5.0); HEMATOCRIT. 43.3 % (42.0-52.0); LYMPHOCYTES % 28.6 % (20.0-50.0); MEAN CORPUSCULAR HEMOGLOBIN 33.8 pg (28.0-32.0); MEAN CORPUSCULAR VOLUME 104.2 fL (80.0-94.0); MEAN PLATELET VOLUME 8.5 fl (7.4-10.4); MONOCYTES % 6.8 % (2.0-8.0); NEUTROPHILS % 59.7 % (40.0-76.0); PLATELET 168 x1000/uL (130-400); RED BLOOD CELL COUNT 4.15 mill/uL (4.7-6.1); RED CELL DISTRIBUTION WIDTH 15.5 % (11.6-14.6)
[2019-02-09 06:26] VITALS: BP 185/99
[2019-02-09 06:26] LABS: CHLORIDE 110 mEq/L (98-107)
[2019-02-09] MEDS ORDERED: FUROSEMIDE 40MG TABLET PO ONE (06:30)
[2019-02-09] MEDS ORDERED: CLONIDINE 0.1MG TABLET PO ONE (06:30)
[2019-02-09] MEDS ORDERED: AMLODIPINE 5MG TABLET PO ONE (06:30)
[2019-02-09 06:46] LABS: PARTIAL THROMBOPLASTIN TIME 30.2 sec (23.4-31.0); PROTHROMBIN TIME 10.7 sec (9.6-11.0)
[2019-02-09 07:45] LABS: *AMPHETAMINES SCREEN URINE NEGATIVE (NEGATIVE)
[2019-02-09 07:46] LABS: *BARBITURATES SCREEN URINE NEGATIVE (NEGATIVE); *BENZODIAZEPINES SCREEN URINE NEGATIVE (NEGATIVE); *COCAINE SCREEN URINE NEGATIVE (NEGATIVE); METHADONE URINE SCREEN NEGATIVE (NEGATIVE); OPIATES URINE SCREEN NEGATIVE (NEGATIVE); PHENCYCLIDINE URINE SCREEN PRESUMTIVE POSITIVE (NEGATIVE)
[2019-02-09 07:47] LABS: CANNABINOID URINE SCREEN NEGATIVE (NEGATIVE)
== END 2019-02-09 07:22 | disposition left against medical advice (07) ==
LOC: ER 00:08
DX: J45.909 Unspecified asthma, uncomplicated (principal); I10 Essential (primary) hypertension; Z98.890 Other specified postprocedural states
CPT/HCPCS: 36415; 71045; 80048; 80305; 83880; 84484; 85025; 85610; 85730; 99284; Z7610

== ENCOUNTER 2019-02-10 00:54 | Emergency (ER) | payer MEDICAID ==
[~2019-02-10] VITALS: Ht 182.9 cm; Wt 101.0 kg
[2019-02-10] MEDS ORDERED: ACETAMINOPHEN 500MG TABLET PO ONE (04:45)
[2019-02-10] MEDS ORDERED: CLONIDINE 0.1MG TABLET PO ONE (04:45)
[2019-02-10] MEDS ORDERED: TRAMADOL 50MG TABLET PO ONE (06:15)
[2019-02-10 06:23] VITALS: BP 139/85
== END 2019-02-10 06:48 | disposition home or self-care (01) ==
LOC: ER 01:59
DX: I89.0 Lymphedema, not elsewhere classified (principal); M25.572 Pain in left ankle and joints of left foot; M25.571 Pain in right ankle and joints of right foot; I10 Essential (primary) hypertension; F17.200 Nicotine dependence, unspecified, uncomplicated; Z79.82 Long term (current) use of aspirin; Z79.899 Other long term (current) drug therapy; Z86.718 Personal history of other venous thrombosis and embolism
CPT/HCPCS: 99284

== ENCOUNTER 2019-03-01 06:46 | Emergency (ER) | payer MEDICAID ==
[~2019-03-01] VITALS: Ht 182.9 cm; Wt 102.0 kg
[2019-03-01 06:51] VITALS: BP 181/80
== END 2019-03-01 08:01 | disposition left against medical advice (07) ==
LOC: ER 06:46
DX: M25.571 Pain in right ankle and joints of right foot (principal); M25.511 Pain in right shoulder; Z53.21 Procedure and treatment not carried out due to patient leaving prior to being seen by health care provider

== ENCOUNTER 2019-03-01 10:36 | Emergency (ER) | payer MEDICAID ==
[~2019-03-01] VITALS: Ht 182.9 cm; Wt 102.0 kg
[2019-03-01 10:58] VITALS: BP 170/84
[2019-03-01] MEDS ORDERED: ACETAMINOPHEN WITH CODEINE 300/30MG TABLET PO ONE (16:00)
== END 2019-03-01 16:52 | disposition home or self-care (01) ==
LOC: ER 10:36
DX: M79.671 Pain in right foot (principal); G89.29 Other chronic pain; I10 Essential (primary) hypertension; F17.200 Nicotine dependence, unspecified, uncomplicated; Z79.82 Long term (current) use of aspirin; Z79.899 Other long term (current) drug therapy; Z98.890 Other specified postprocedural states
CPT/HCPCS: 99282; 99283

== ENCOUNTER 2019-03-10 23:06 | Emergency (ER) | payer MEDICAID ==
[~2019-03-10] VITALS: Ht 182.9 cm; Wt 102.0 kg
[2019-03-11] MEDS ORDERED: HYDROCODONE/ACETAMINOPHEN 10/325MG TABLET PO ONE (02:45)
[2019-03-11 02:50] VITALS: BP 144/88
== END 2019-03-11 03:10 | disposition home or self-care (01) ==
LOC: ER 23:06
DX: R07.89 Other chest pain (principal); I10 Essential (primary) hypertension
CPT/HCPCS: 93005; 99283

== ENCOUNTER 2019-03-15 23:04 | Emergency (ER) | payer MEDICAID ==
[~2019-03-15] VITALS: Ht 182.9 cm; Wt 101.0 kg
[2019-03-16] MEDS ORDERED: IBUPROFEN 600MG TABLET PO ONE (00:30)
[2019-03-16 01:32] VITALS: BP 189/99
== END 2019-03-16 01:34 | disposition home or self-care (01) ==
LOC: ER 23:04
DX: G89.29 Other chronic pain (principal); M79.662 Pain in left lower leg; M79.661 Pain in right lower leg; I10 Essential (primary) hypertension
CPT/HCPCS: 99282

== ENCOUNTER 2019-03-17 00:32 | Emergency (ER) | payer MEDICAID ==
[~2019-03-17] VITALS: Ht 182.9 cm; Wt 103.0 kg
[2019-03-17] MEDS ORDERED: IBUPROFEN 800MG TABLET PO ONE (01:45)
[2019-03-17 02:13] VITALS: BP 156/78
== END 2019-03-17 02:14 | disposition home or self-care (01) ==
LOC: ER 00:32
DX: G89.29 Other chronic pain (principal); I10 Essential (primary) hypertension; F17.200 Nicotine dependence, unspecified, uncomplicated; Z79.899 Other long term (current) drug therapy; Z79.82 Long term (current) use of aspirin
CPT/HCPCS: 99282

== ENCOUNTER 2019-03-26 02:14 | Emergency (ER) | payer MEDICAID ==
[~2019-03-26] VITALS: Ht 182.9 cm; Wt 100.0 kg
[2019-03-26 02:16] VITALS: BP 154/71
== END 2019-03-26 06:23 | disposition left against medical advice (07) ==
LOC: ER 02:14
DX: R11.0 Nausea (principal); Z53.21 Procedure and treatment not carried out due to patient leaving prior to being seen by health care provider
CPT/HCPCS: 93005

== ENCOUNTER 2019-03-27 07:03 | Emergency (ER) | payer MEDICAID | END 2019-03-27 07:47 | disposition left against medical advice (07) | LOC: ER 07:03 | DX: Z53.21 Procedure and treatment not carried out due to patient leaving prior to being seen by health care provider (principal) ==

== ENCOUNTER 2019-03-28 23:03 | Emergency (ER) | payer MEDICAID ==
[~2019-03-28] VITALS: Ht 175.3 cm; Wt 86.0 kg
[2019-03-29 05:20] VITALS: BP 169/96
== END 2019-03-29 05:22 | disposition home or self-care (01) ==
LOC: ER 23:03
DX: J06.9 Acute upper respiratory infection, unspecified (principal); I10 Essential (primary) hypertension; Z79.82 Long term (current) use of aspirin; Z79.899 Other long term (current) drug therapy
CPT/HCPCS: 99283

== ENCOUNTER 2019-05-23 15:36 | Emergency (ER) | payer MEDICAID ==
[~2019-05-23] VITALS: Ht 177.8 cm; Wt 100.0 kg
[2019-05-23 15:42] VITALS: BP 107/64
== END 2019-05-23 17:02 | disposition left against medical advice (07) ==
LOC: ER 15:36
DX: R26.2 Difficulty in walking, not elsewhere classified (principal); M79.605 Pain in left leg; M79.604 Pain in right leg; T73.0XXA Starvation, initial encounter; X58.XXXA Exposure to other specified factors, initial encounter
CPT/HCPCS: 99283